=== PATIENT | male | born 1995 | race Caucasian/White ===

== ENCOUNTER 2024-08-02 22:41 | Observation (INO) | payer OTHER, SELFPAY ==
[2024-08-02 22:44] VITALS: BP 142/99; PULSE 120; RESP 15; TEMP 36.6; O2SAT 98
[2024-08-02] MEDS: GLUCAGON FOR INJ 1 MG VIAL IV PUSH (23:14)
[2024-08-02] MEDS: NITROGLYCERIN SL 0.4 MG TABLET SUBLINGUAL (23:14)
[2024-08-02] MEDS: SODIUM CHLORIDE 0.9% IV 1,000 ML 999 ML IV CONT (23:15)
--- NOTE | 2024-08-02 23:42 | ED_ITS ---
HPI - General Adult General Chief complaint: Unspecified Stated complaint: food bolus Time Seen by Provider: 08/02/24 23:05 History of Present Illness HPI narrative: Patient is a 29-year-old gentleman who presents emergency department chief complaint of esophageal food impaction the patient reports that he was eating steak this evening and took too big of a bite and it has been in his esophagus for approximately 5 hours the patient reports that he has been spitting up his saliva and feels as though a steak is stuck in his esophagus the patient reports he has done this before but has been able to pass the impaction on his own patient reports that he has not seen a GI specialist Related Data Allergies Allergy/AdvReac Type Severity Reaction Status Date / Time No Known Allergies Allergy Unverified 03/06/14 18:02 Review of Systems 2 Review of Systems: A 10 system review of systems was completed on the patient and is negative except for what is stated in the HPI. Nursing and ancillary documentation was reviewed. PMFSH Social History Social History Smoking status: Never smoker Exam 2 Narrative: GENERAL: Well-appearing, well-nourished, and in no acute distress. HEAD: Normocephalic, atraumatic. EYES: PERRLA and EOMI. ENT: Nares clear, no rhinorrhea or epistaxis. Mucous membranes moist. NECK: Supple. CHEST: Clear to auscultation. No respiratory distress. HEART: Regular rate and rhythm. No murmur heard. Normal peripheral pulses. ABDOMEN: Soft, nontender, nondistended, normal active bowel sounds. EXTREMITIES: Normal range of motion. No edema. SKIN: Warm, dry, no rash. NEURO: No focal deficits. Alert and oriented x3. PSYCH: Normal mood and affect. Course Vital Signs Vital signs: Vital Signs Temperature 36.6 C 08/02/24 22:44 Pulse Rate 120 H 08/02/24 22:44 Respiratory Rate 15 08/02/24 22:44 Blood Pressure 142/99 H 08/02/24 22:44 Pulse Oximetry 98 08/02/24 22:44 Oxygen Delivery Room Air 08/02/24 22:44 Temperature 36.6 C 08/02/24 22:44 Pulse Rate 120 H 08/02/24 22:44 Respiratory Rate 15 08/02/24 22:44 Blood Pressure 142/99 H 08/02/24 22:44 Pulse Oximetry 98 08/02/24 22:44 Oxygen Delivery Room Air 08/02/24 22:44 Medical Decision Making MDM Narrative Medical decision making narrative: Differential diagnosis includes food impaction Patient was given a dose of glucagon and a dose of nitroglycerin without success Case was discussed with Dr. Vail who will consult on the patient and would like to do the procedure 1st thing in the morning and recommended the patient be admitted to the hospitalist service Vital Signs Vital Signs: Vital Signs Temperature 36.6 C 08/02/24 22:44 Pulse Rate 120 H 08/02/24 22:44 Respiratory Rate 15 08/02/24 22:44 Blood Pressure 142/99 H 08/02/24 22:44 Pulse Oximetry 98 08/02/24 22:44 Oxygen Delivery Room Air 08/02/24 22:44 Temperature 36.6 C 08/02/24 22:44 Pulse Rate 120 H 08/02/24 22:44 Respiratory Rate 15 08/02/24 22:44 Blood Pressure 142/99 H 08/02/24 22:44 Pulse Oximetry 98 08/02/24 22:44 Oxygen Delivery Room Air 08/02/24 22:44 Lab Data 08/02/24 23:48 08/02/24 23:48 Labs: Lab Results 08/02/24 Range/Units 23:48 WBC 6.3 (4.5-10.0) K/mm3 RBC 5.07 (4.6-6.20) M/mm3 Hgb 14.5 (14.0-18.0) g/dL Hct 43.6 (42.0-52.0) % MCV 86.0 (80-100) fl MCH 28.6 (26-34) pg MCHC 33.3 (32-36) g/dl RDW 12.6 (11.5-14.5) % Plt Count 200 (150-375) k/mm3 MPV 10.6 H (7.4-10.4) fl Immature Gran % (Auto) 0.3 (0-0.5) % Neut % (Auto) 75.8 H (45.5-73.1) % Lymph % (Auto) 14.0 L (18.3-44.2) % [place] % (Auto) 8.9 H (2.6-8.5) % Eos % (Auto) 0.2 (0-4.4) % Baso % (Auto) 0.8 (0.2-1.2) % Lymph # (Auto) 0.88 L (0.9-3.2) K/mm3 [place] # (Auto) 0.6 (0.1-0.6) K/mm3 Eos # (Auto) 0.0 (0-0.3) K/mm3 Baso # (Auto) 0.1 (0.0-0.1) K/mm3 Abs Immat Gran (auto) 0.02 (0.00-0.031) K/mm3 Absolute Neuts (auto) 4.8 (1.3-6.7) K/mm3 Absolute Nucleated RBC 0.000 (0.0-0.012) K/mm3 Nucleated RBC % 0.0 (0.0-0.2) % Sodium 136 L (137-145) mmol/L Potassium 4.0 (3.4-5.0) mmol/L Chloride 101 (98-107) mmol/L Carbon Dioxide 28 (22-30) mmol/L Anion Gap 7 (4-12) mmol/L BUN 13 (9-20) mg/dL Creatinine 1.10 (0.7-1.3) mg/dL Estim Creat Clear Calc 96 ml/min Estimated GFR > 60 (59 - ) Glucose 199 H (65-110) mg/dL Calcium 9.9 (8.4-10.2) mg/dL Total Bilirubin 1.1 (0.2-1.3) mg/dL AST 39 (17-59) U/L ALT 82 H (6-50) U/L Alkaline Phosphatase 71 (38-126) U/L Total Protein 7.0 (6.3-8.2) g/dL Albumin 4.6 (3.5-5.1) g/dL Discharge Plan Discharge Clinical Impression: Esophageal obstruction due to food impaction Patient Disposition: Still a Patient Condition: Stable Patient Language: Montenegrin Follow-up/Referrals: Miguel,MD Anthony [Primary Care Provider] - Time of Disposition: 00:09
[2024-08-02 23:54] LABS: Basophils Absolute Auto 0.1 K/mm3 (0.0-0.1); Basophils Percent Auto 0.8 % (0.2-1.2); Eosinophils Percent Auto 0.2 % (0-4.4); Hematocrit 43.6 % (42.0-52.0); Hemoglobin 14.5 g/dL (14.0-18.0); Immature Granulocyte Absolute 0.02 K/mm3 (0.00-0.031); Immature Granulocyte Percent A 0.3 % (0-0.5); Lymphocytes Absolute Auto 0.88 K/mm3 (0.9-3.2); Mean Corpuscular HGB Conc 33.3 g/dl (32-36); Mean Corpuscular Hemoglobin 28.6 pg (26-34); Mean Platelet Volume 10.6 fl (7.4-10.4); Monocytes Absolute Auto 0.6 K/mm3 (0.1-0.6); Monocytes Percent Auto 8.9 % (2.6-8.5); Neutrophils Absolute Auto 4.8 K/mm3 (1.3-6.7); Neutrophils Percent Auto 75.8 % (45.5-73.1); Platelet Count Result 200 k/mm3 (150-375); Red Blood Count 5.07 M/mm3 (4.6-6.20); Red Cell Distribution Width 12.6 % (11.5-14.5); White Blood Count 6.3 K/mm3 (4.5-10.0)
[2024-08-03] VITALS (11 sets, daily range): BP systolic 109–150; BP diastolic 47–93; PULSE 64–110; RESP 13–20; TEMP 36.2–36.6; O2SAT 96–100; BMI 29.4
[2024-08-03 00:04] LABS: Alanine Aminotransferase 82 U/L (6-50); Albumin Level 4.6 g/dL (3.5-5.1); Alkaline Phosphatase 71 U/L (38-126); Anion Gap 7 mmol/L (4-12); Aspartate Amino Transferase 39 U/L (17-59); Bilirubin,Total 1.1 mg/dL (0.2-1.3); Blood Urea Nitrogen 13 mg/dL (9-20); Calcium 9.9 mg/dL (8.4-10.2); Carbon Dioxide 28 mmol/L (22-30); Chloride 101 mmol/L (98-107); Estimated CRCL calculation 96 ml/min; Estimated Glomerular Filt Rate > 60; Glucose 199 mg/dL (65-110); Sodium 136 mmol/L (137-145)
--- NOTE | 2024-08-03 01:01 | PC.NURSE ---
Dona at [facility] states that pt came to them after being removed from hospice with a stoma, but 3 weeks ago had a procedure at [facility] where he had his button replaced but not sutured in. Reports that her shift 5 days ago, patient had an apparatus in stoma from the procedure 3 weeks ago, but was not there upon her seeing patient today. States that pt likes to put stuff into his stoma and was complaining of pain to stoma. Reports that he uses hand gestures or covers stoma to speak to communicate.
[2024-08-03] MEDS: SODIUM CHLORIDE 0.9% IV 1,000 ML 125 ML IV CONT (02:05)
[2024-08-03] MEDS: KETOROLAC 30 MG/ML VIAL (*BKC) (02:06)
--- NOTE | 2024-08-03 02:14 | ADMGEN ---
This patient, Pablito Jenkins, was admitted to 3 [facility] Surg Room 311-01 at 0145. Patient/family oriented to hospital policies and general routines including ID bracelet, bed and alarms, visiting hours, pain management, procedures, bathroom and other care routines, personal items, smoking policy, room service/diet, and visiting hours. Information on how to activate the Rapid Response Team has been discussed. Patient/Family are encouraged to report perceived risks to care and to ask questions if they do not understand what they are told or what they should do.
--- NOTE | 2024-08-03 07:00 | WPDGICN ---
Assessment and Plan Assessment and plan (1) Esophageal obstruction due to food impaction: Code(s): T18.128A - Food in esophagus causing other injury, initial encounter; W44.F3XA - Food entering into or through a natural orifice, initial encounter Status: Acute Assessment and Plan: will proceed with urgent EGD now, may need biopsies based on findings and probably ppi more recommendations after egd (2) Dysphagia: Code(s): R13.10 - Dysphagia, unspecified Status: Acute Assessment and Plan: wonder if stricture or EoE egd now (3) Non-cardiac chest pain: Code(s): R07.89 - Other chest pain Status: Acute Assessment and Plan: resolved now (4) HTN (hypertension), benign: Code(s): I10 - Essential (primary) hypertension Status: Acute GI Consult Note Consult date/time: 08/03/24 07:00 Reason for consult: food bolus HPI: Pablito Jenkins is a 29 year old male wiht h/o HTN here with unable to swallow anymore after had steak for dinner last night, finally came to ER, glucagon did not work. He is still can not swallow and was complaining of chest pain. He is comfortable now. He never had EGD but few occasions sensation of food getting stuck in chest but will stay only for few minutes and will either pass or he will throw up. Sister with similar condition ? EoE Review of Systems Review of Systems: All systems reviewed & are unremarkable except as noted in HPI and below PMFSH Past Medical History Medical History (Updated 08/03/24 @ 07:03 by Antonio Woodall MD) HTN (hypertension), benign Non-cardiac chest pain Dysphagia Family History Family History (Updated 08/03/24 @ 01:11 by Daily Castelan RN) Other Unknown family medical history Social History Social History Smoking status: Never smoker Do You Feel Safe in your Home?: Yes Lack of Transportation: No Lack of Food: Never True Current Housing: I Have Housing Concerned About Future Housing: No Difficulty Paying Gas/Electric Bills: No Difficulty Paying for Meds: No Currently Unemployed: No Education: Bachelor's Degree Difficulty w/ Childcare or Family Care: No Spiritual care concerns: No Meds Home Medications and Allergies Home Medications ?Medication ?Instructions ?Recorded ?Confirmed ?Type lisinopril 20 mg tablet 20 mg PO DAILY 08/03/24 08/03/24 History Allergies Allergy/AdvReac Type Severity Reaction Status Date / Time No Known Allergies Allergy Verified 08/03/24 07:01 Vital Signs Vital Signs - 24 hr 08/02/24 22:44 08/03/24 00:37 08/03/24 01:45 Temperature 98 F 97.3 F L Pulse Rate 120 H 109 H 97 Respiratory Rate 15 15 16 Blood Pressure 142/99 H 150/93 H 139/84 Pulse Oximetry 98 96 100 Oxygen Delivery Room Air 08/03/24 02:11 08/03/24 05:33 Temperature 97.4 F L Pulse Rate 92 Respiratory Rate 13 Blood Pressure 136/83 Pulse Oximetry 99 Oxygen Delivery Room Air Exam Const: General: comfortable and no acute distress HENMT: Face/Nose/Sinus: Normal nares present Eyes: General: appearance normal, both eyes and all related structures Neck: Neck: no JVD Resp: Auscultation: clear to auscultation bilaterally Cardio: Rate: regular rate Rhythm: regular rhythm GI: Inspection: non-distended GI Palp: Yes Soft to palpation Skin: General skin exam: normal color Neuro: General: gait normal Speech: normal speech Extrem: General: normal to inspection Psych: Mental Status: mental status grossly normal Results Labs 08/02/24 23:48 08/02/24 23:48 Labs: Short CBC 08/02/24 Range/Units 23:48 WBC 6.3 (4.5-10.0) K/mm3 Hgb 14.5 (14.0-18.0) g/dL Hct 43.6 (42.0-52.0) % Plt Count 200 (150-375) k/mm3 [facility] 08/02/24 23:48 Sodium 136 L Potassium 4.0 Chloride 101 Carbon Dioxide 28 BUN 13 Creatinine 1.10 Glucose 199 H Calcium 9.9 Liver Function 08/02/24 Range/Units 23:48 Total Bilirubin 1.1 (0.2-1.3) mg/dL AST 39 (17-59) U/L ALT 82 H (6-50) U/L Alkaline Phosphatase 71 (38-126) U/L Albumin 4.6 (3.5-5.1) g/dL
[2024-08-03] MEDS: LACTATED RINGERS 1,000 ML 150 ML IV CONT (07:05)
--- NOTE | 2024-08-03 07:24 | P.PNAN_ITS ---
Anes - Initial Pre Proc Eval Procedure: Operation Date: 08/03/24 07:15 Proposed Procedures p Esophagogastroduodenoscopy - Antonio Woodall MD Date/Time: 08/03/24 07:24 Surgeon: Mesha Iverson DO Pre Op Diagnosis: esophageal food poison Patient Data Age: 29 Gender: M Height: 1.83 m Weight: 98.4 kg Last Vital Signs Temp 36.6 C 08/03/24 07:03 Pulse 110 H 08/03/24 07:03 Resp 20 08/03/24 07:03 BP 146/89 H 08/03/24 07:03 Pulse Ox 100 08/03/24 07:03 O2 Del Method Room Air 08/03/24 07:03 Allergies Allergy/AdvReac Type Severity Reaction Status Date / Time No Known Allergies Allergy Verified 08/03/24 07:01 Home Medications ?Medication ?Instructions ?Recorded ?Confirmed ?Type lisinopril 20 mg tablet 20 mg PO DAILY 08/03/24 08/03/24 History Laboratory Tests 08/02/24 23:48 WBC 6.3 K/mm3 (4.5-10.0) RBC 5.07 M/mm3 (4.6-6.20) Hgb 14.5 g/dL (14.0-18.0) Hct 43.6 % (42.0-52.0) MCV 86.0 fl (80-100) MCH 28.6 pg (26-34) MCHC 33.3 g/dl (32-36) RDW 12.6 % (11.5-14.5) Plt Count 200 k/mm3 (150-375) MPV 10.6 H fl (7.4-10.4) Immature Gran % (Auto) 0.3 % (0-0.5) Neut % (Auto) 75.8 H % (45.5-73.1) Lymph % (Auto) 14.0 L % (18.3-44.2) [place] % (Auto) 8.9 H % (2.6-8.5) Eos % (Auto) 0.2 % (0-4.4) Baso % (Auto) 0.8 % (0.2-1.2) Lymph # (Auto) 0.88 L K/mm3 (0.9-3.2) [place] # (Auto) 0.6 K/mm3 (0.1-0.6) Eos # (Auto) 0.0 K/mm3 (0-0.3) Baso # (Auto) 0.1 K/mm3 (0.0-0.1) Abs Immat Gran (auto) 0.02 K/mm3 (0.00-0.031) Absolute Neuts (auto) 4.8 K/mm3 (1.3-6.7) Absolute Nucleated RBC 0.000 K/mm3 (0.0-0.012) Nucleated RBC % 0.0 % (0.0-0.2) Sodium 136 L mmol/L (137-145) Potassium 4.0 mmol/L (3.4-5.0) Chloride 101 mmol/L (98-107) Carbon Dioxide 28 mmol/L (22-30) Anion Gap 7 mmol/L (4-12) BUN 13 mg/dL (9-20) Creatinine 1.10 mg/dL (0.7-1.3) Estim Creat Clear Calc 96 ml/min Estimated GFR > 60 (59 - ) Glucose 199 H mg/dL (65-110) Calcium 9.9 mg/dL (8.4-10.2) Total Bilirubin 1.1 mg/dL (0.2-1.3) AST 39 U/L (17-59) ALT 82 H U/L (6-50) Alkaline Phosphatase 71 U/L (38-126) Total Protein 7.0 g/dL (6.3-8.2) Albumin 4.6 g/dL (3.5-5.1) Patient hx anesthesia problems: none Family hx anesthesia problems: none Results Review: All pre-operative results and documents have been reviewed as part of the pre- operative evaluation. [facility] Past Medical History Medical History HTN (hypertension), benign Non-cardiac chest pain Dysphagia Family History Family History Other Unknown family medical history Social History Social History Smoking status: Never smoker Do You Feel Safe in your Home?: Yes Lack of Transportation: No Lack of Food: Never True Current Housing: I Have Housing Concerned About Future Housing: No Difficulty Paying Gas/Electric Bills: No Difficulty Paying for Meds: No Currently Unemployed: No Education: Bachelor's Degree Difficulty w/ Childcare or Family Care: No Spiritual care concerns: No Anes - Eval Final PreProcedure Day of Procedure 08/03/24 07:24 Patient weight: overweight Heart: regular rate and rhythm Lungs: clear to auscultation Airway: Mallampati scale class II Neurological: alert and oriented Last oral intake: >/= 8 hours ASA classification: II Emergent: yes Anesthetic plan: proceed Anesthesia type and monitoring: general GIVS and standard monitoring Results Review: All pre-operative results and documents have been reviewed as part of the pre- operative evaluation. Informed Consent: The patient's anesthetic plan and its attendant risks and benefits were discussed with the patient/family/POA. Questions were solicited and answers provided to the satisfaction of the patient/family/POA.
--- NOTE | 2024-08-03 08:53 | P.SS_ITS ---
Same Day Admit/Disch: HPI History of Present Illness Chief complaint: esophageal food poison Narrative: Pablito Jenkins is a 29 year old male that came to the ER with esophageal food impaction. Patient reports that he was eating steak yesterday evening and took too big of a bite and it has been in the esophagus for approximately 5 hours. The patient reports that he was spitting up saliva and feels as though a steak is stuck in his esophagus the patient reports he has done this before but has been able to pass the impaction on his own patient reports that he has not seen a GI specialist. [facility] Past Medical History Medical History HTN (hypertension), benign Non-cardiac chest pain Dysphagia Family History Family History Other Unknown family medical history Social History Social History Smoking status: Never smoker Do You Feel Safe in your Home?: Yes Lack of Transportation: No Lack of Food: Never True Current Housing: I Have Housing Concerned About Future Housing: No Difficulty Paying Gas/Electric Bills: No Difficulty Paying for Meds: No Currently Unemployed: No Education: Bachelor's Degree Difficulty w/ Childcare or Family Care: No Spiritual care concerns: No Same Day Admit/Disch: Med Pre-admit Medications Home Medications ?Medication ?Instructions ?Recorded ?Confirmed ?Type lisinopril 20 mg tablet 20 mg PO DAILY 08/03/24 08/03/24 History pantoprazole 40 mg tablet,delayed 40 mg PO QAM #30 tabs 08/03/24 Rx release Review of Systems Review of Systems All systems reviewed & are unremarkable except as noted in HPI and below Exam Const: General: comfortable and no acute distress Eyes: Sclera: sclerae normal Resp: Effort & Inspection: normal respiratory effort Auscultation: clear to auscultation bilaterally Cardio: Rate: regular rate Rhythm: regular rhythm GI: GI Palp: Yes Soft to palpation Auscultation: normal bowel sounds Skin: General skin exam: no rashes or lesions noted Neuro: Speech: normal speech Extrem: General: no pedal edema Psych: Mental Status: mental status grossly normal Affect: normal affect DS: Data Data Completed and Pending Pending studies at discharge: Pending at discharge 08/03/24 07:37 Surgical [PTH] Routine Labs on day of discharge: Labs from last 24 hours 08/02/24 23:48 WBC 6.3 RBC 5.07 Hgb 14.5 Hct 43.6 MCV 86.0 MCH 28.6 MCHC 33.3 RDW 12.6 Plt Count 200 MPV 10.6 H Immature Gran % (Auto) 0.3 Neut % (Auto) 75.8 H Lymph % (Auto) 14.0 L [place] % (Auto) 8.9 H Eos % (Auto) 0.2 Baso % (Auto) 0.8 Lymph # (Auto) 0.88 L [place] # (Auto) 0.6 Eos # (Auto) 0.0 Baso # (Auto) 0.1 Abs Immat Gran (auto) 0.02 Absolute Neuts (auto) 4.8 Absolute Nucleated RBC 0.000 Nucleated RBC % 0.0 Sodium 136 L Potassium 4.0 Chloride 101 Carbon Dioxide 28 Anion Gap 7 BUN 13 Creatinine 1.10 Estim Creat Clear Calc 96 Estimated GFR > 60 Glucose 199 H Calcium 9.9 Total Bilirubin 1.1 AST 39 ALT 82 H Alkaline Phosphatase 71 Total Protein 7.0 Albumin 4.6 DS: Summary Hospital Course Hospital Course: Patient came to the ER with food impaction in esophagus. Patient had an EGD: A moderate amount of retained food was seen in the distal esophagus and in the esophageal cardia. Meat was removed with a helms net successfully (actually was gently pushed down into the stomach), no complications. A ring was present in the esophageal cardia. This was the cause of food bolus, noted small expected tear but no complications. Discharge to home with follow up EGD in 6 weeks and PPI added (Pantoprazole 40 mg PO daily). Status at Discharge Functional status at discharge: independent ambulation Overall status at discharge: patient is progressing back to baseline Time Spent with Patient Time attestation: Total time spent providing and/or coordinating discharge services: Time spent: Greater than 30 minutes DS: Admitting Diagnosis Discharge Date 08/03/2024 Admitting Diagnosis Food stuck in esophagus DS: Discharge Diagnosis Discharge Diagnosis (1) Esophageal obstruction due to food impaction: Code(s): T18.128A - Food in esophagus causing other injury, initial encounter; W44.F3XA - Food entering into or through a natural orifice, initial encounter Status: Acute Discharge Plan Discharge Attending physician on discharge: Windy Cervantes Consulting providers: Antonio Woodall Discharging Clinician: Debra Graves Anticipated Discharge Date/Time: 08/03/24 10:00 Patient Disposition: Home, Self-Care Activity: may shower and as tolerated Diet: regular Discharge Instructions: * Okay to resume diet. Eat small portions at a time. Take polly bites and chew food well before swallowing. * Dr. Woodall office will call with test results. If you haven't heard from them within 7 days, please call the office. * Call Dr. Woodall office to set up EGD for 6 weeks. Patient Instructions: Pain Management (DC), GERD (Gastroesophageal Reflux Disease) (DC), Esophageal Stricture (GEN) Patient Language: Bulgarian Stand Alone Forms: General Discharge Information Follow-up/Referrals: Antonio Woodall MD [Physician] - 6 Weeks (Schedule EGD) Discharge Medications: New pantoprazole 40 mg Tablet,Delayed Release (Dr/Ec) 40 mg PO QAM Qty: 30 1RF Continued lisinopril 20 mg tablet 20 mg PO DAILY Date of admission: 08/03/24 00:10 Primary Care Provider: MiguelAnthony Admitting Provider: Mesha Iverson Attending physician on admission: Mesha Iverson Condition: Stable Hospitalist MIPS Advance Care Plan I have confirmed that the patient's Advanced Care Plan is present, code status is documented, or surrogate decision maker is listed in patient medical record.: Yes Medication Reconciliation I have utilized all available resources to obtain, update and review the patients current medications (includes all prescriptions, OTC, herbals, cannabis, and nutritional supplements).: Yes Heart Failure (Exclusion) Patient has history of Heart Transplant or Left Ventricular Assistive Device?: No IF YES, STOP HERE Heart Failure (Qualifier) Patient has current or prior documentation of LVEF less than or equal to 40%, or mod/servere depressed LVSF?: No IF NO, STOP HERE
[2024-08-03] MEDS: PANTOPRAZOLE 40 MG TABLET PO (09:42)
== END 2024-08-03 10:16 | disposition home or self-care (01) ==
LOC: ANHED 23:51 → ANH3MEDSUR 08-03 01:15
PROVIDERS: Internal Medicine Gastroenterology; Admitting Provider Internal Medicine; Emergency Provider Emergency Medicine; PCP Internal Medicine Infectious Disease; Visit Provider Hospitalist
PROC: 0DJ08ZZ Inspection of Upper Intestinal Tract, Via Natural or Artificial Opening Endoscopic (ICD-10-PCS; CPT 43235; principal; 2024-08-03 07:15)
DX: T18.128A Food in esophagus causing other injury, initial encounter (principal); W44.F3XA Food entering into or through a natural orifice, initial encounter; K22.2 Esophageal obstruction; K20.90 Esophagitis, unspecified without bleeding; K29.50 Unspecified chronic gastritis without bleeding; R13.19 Other dysphagia; R07.89 Other chest pain; I10 Essential (primary) hypertension; Z79.899 Other long term (current) drug therapy
CPT/HCPCS: 43247; 43239; 36415; 80053; 85025; 88305; 96361; 96374; 99285; A9270; G0378; J1610; J1885; J2003; J2704; J7030; J7120

== ENCOUNTER 2024-09-30 02:14 | Day surgery (SDC) | payer OTHER, SELFPAY ==
[2024-09-16 09:02] VITALS: BMI 26.4
--- OUTSIDE RECORDS SUMMARY | 2024-09-30 02:17 | XMS_ITS | Encounter Summary ---
Author Organization [facility] Address [address] [place] [address] Phone Care Team Providers Care Field Counsel Name Role Phone Anthony Rivera MD Primary Care Provider +1- [phone] Encounter Details Date Type Department Care Team (Late st Contact Info) Description 04/07/2017 Orders Only [facility] [address] [place] [address] Anthony Rivera MD [address] [address] Essential hypertension, malignant (Primary Dx); Routine lab draw Social History Tobacco Use Types Packs/Day Years Used Date Smoking Tobacco: Never Smokeless Tobacco: Never Sex and Gender Information Value Date Recorded Sex Assigned at Not on file Legal Sex Male 8:50 PM HIDE PULLER Gender Identity Not on file Sexual Orientation Not on file documented as of this encounter Plan of Treatment Not on file documented as of this encounter Procedures Procedure Name Priority Date/Time Associated Diagnosis Comments CBC WITH AUTO DIFFERENTIAL Routine 08/14/2017 10:00 AM HIDE PULLER Essential hypertension, malignant VITAMIN D 25 HYDROXY Routine 08/14/2017 10:00 AM HIDE PULLER Routine lab draw VITAMIN B12 Routine 08/14/2017 10:00 AM HIDE PULLER Routine lab draw LIPID PANEL Routine 08/14/2017 10:00 AM HIDE PULLER Essential hypertension, malignant COMPREHENSIVE METABOLIC PANEL Routine 08/14/2017 10:00 AM HIDE PULLER Essential hypertension, malignant documented in this encounter Results * Vitamin B12 (08/14/2017 10:00 AM HIDE PULLER) Vitamin B12 442 200 - 1,100 pg/mL [facility] Blood specimen (specimen) 08/14/2017 10:00 AM HIDE PULLER 08/14/2017 10:00 AM HIDE PULLER Narrative [facility] - 08/15/2017 3:37 AM HIDE PULLER FASTING:YES FASTING: YES Resulting Agency Comment Performing Organization Information: Site ID: [id number] Name: [facility] Address: [address] [place] [address] Director: Jean Mcnally D.O., MPH Anthony Rivera MD LAB BLOOD ORDERABLES Final Result [place], [place] * (ABNORMAL) Lipid panel (08/14/2017 10:00 AM HIDE PULLER) Pathologist [facility] Cholesterol 214(H) <200 mg/dL [facility] [place] HDL 50 >40 mg/dL [facility] Triglycerides 124 <150 mg/dL [facility] [place] LDL 139(H) mg/dL (calc) [facility] Comment: Reference range: <100 Desirable range <100 mg/dL for patients with CHD or diabetes and <70 mg/dL for diabetic patients with known heart disease. LDL-C is now calculated using the Judah-Gia calculation, which is a validated novel method providing better accuracy than the Friedewald equation in the estimation of LDL-C. Judah SS et al. DAMIR. 2013;310(19): 3404-4243 (http://education.Exara/faq/XRH206) Chol/HDL ratio 4.3 <5.0 (calc) [facility] [place] Non-HDL, (LDL+VLDL) 164(H) <130 mg/dL (calc) [facility] Comment: For patients with diabetes plus 1 major ASCVD risk factor, treating to a non-HDL-C goal of <100 mg/dL (LDL-C of <70 mg/dL) is considered a therapeutic option. Blood specimen (specimen) 08/14/2017 10:00 AM HIDE PULLER 08/14/2017 10:00 AM HIDE PULLER Narrative [facility] - 08/15/2017 3:37 AM HIDE PULLER FASTING:YES FASTING: YES Resulting Agency Comment Performing Organization Information: Site ID: [id number] Name: [facility] Address: [address] [place] [address] Director: Jean Mcnally D.O., MPH Anthony Rivera MD LAB BLOOD ORDERABLES Final Result [employer] [place], [place] * Vitamin D 25 hydroxy (08/14/2017 10:00 AM HIDE PULLER) Vitamin D 25-OH 30 30 - 100 ng/mL [facility] Comment: Vitamin D Status 25-OH Vitamin D: Deficiency: <20 ng/mL Insufficiency: 20 - 29 ng/mL Optimal: > or = 30 ng/mL For 25-OH Vitamin D testing on patients on D2-supplementation and patients for whom quantitation of D2 and D3 fractions is required, the QuestAssureD(TM) 25-OH VIT D, (D2,D3), LC/MS/MS is recommended: order code [id number] (patients >2yrs). For more information on this test, go to: http://education.Only [place].ANT Farm/faq/BLS976 (This link is being provided for informational/educational purposes only.) Blood specimen (specimen) 08/14/2017 10:00 AM HIDE PULLER 08/14/2017 10:00 AM HIDE PULLER Narrative [facility] - 08/15/2017 3:37 AM HIDE PULLER FASTING:YES FASTING: YES Resulting Agency Comment Performing Organization Information: Site ID: [id number] Name: [facility] Address: [address] [place] [address] Director: Jean Mcnally D.O., MPH us Anthony Rivera MD LAB BLOOD ORDERABLES Final Result [facility] [place] * (ABNORMAL) Comprehensive metabolic panel (08/14/2017 10:00 AM HIDE PULLER) Glucose 102(H) 65 - 99 mg/dL [facility] [place] Comment: Fasting reference interval For someone without known diabetes, a glucose value between 100 and 125 mg/dL is consistent with prediabetes and should be confirmed with a follow-up test. BUN 21 7 - 25 mg/dL [facility] [place] Creatinine 0.90 0.60 - 1.35 mg/dL [facility] [place] eGFR NON-AFR. RWANDAN 120 > OR = 60 mL/min/1. 73m2 [facility] [place] EGFR 139 > OR = 60 mL/min/1. 73m2 [facility] [place] BUN/creat ratio NOT APPLICABLE 6 - 22 (calc) [facility] [place] Sodium 139 135 - 146 mmol/L [facility] [place] Potassium, pl 5.0 3.5 - 5.3 mmol/L [facility] [place] Chloride 102 98 - 110 mmol/L [facility] [place] CO2 29 20 - 31 mmol/L [facility] [place] Calcium 10.3 8.6 - 10.3 mg/dL [facility] [place] Protein, sr 7.6 6.1 - 8.1 g/dL [facility] [place] Albumin 5.4(H) 3.6 - 5.1 g/dL [facility] [place] GLOBULIN 2.2 1.9 - 3.7 g/dL (calc) [facility] [place] Alb/glob ratio 2.5 1.0 - 2.5 (calc) [facility] [place] Bilirubin, total 0.7 0.2 - 1.2 mg/dL [facility] [place] Alk phos 77 40 - 115 U/L [facility] [place] AST 30 10 - 40 U/L [facility] [place] ALT (SGPT) 74(H) 9 - 46 U/L [facility] [place] Blood specimen (specimen) 08/14/2017 10:00 AM HIDE PULLER 08/14/2017 10:00 AM HIDE PULLER Narrative [facility] - 08/15/2017 3:37 AM HIDE PULLER FASTING:YES FASTING: YES Resulting Agency Comment Performing Organization Information: Site ID: [id number] Name: [facility] Address: [address] [address] Director: Jean Mcnally D.O., MPH us Anthony Rivera MD LAB BLOOD ORDERABLES Final Result [facility] [place] * CBC with auto differential (08/14/2017 10:00 AM HIDE PULLER) WBC 5.4 3.8 - 10.8 Thousand/ uL [facility] [place] RBC, POC 5.54 4.20 - 5.80 Million/u L [facility] [place] Hgb 15.9 13.2 - 17.1 g/dL [facility] [place] Hct 48.1 38.5 - 50.0 % [facility] [place] MCV 86.8 80.0 - 100.0 fL [facility] [place] MCH 28.7 27.0 - 33.0 pg [facility] [place] MCHC 33.1 32.0 - 36.0 g/dL [facility] [place] Rdw 12.0 11.0 - 15.0 % [facility] [place] Platelets 227 140 - 400 Thousand/ uL [facility] [place] MPV 11.1 7.5 - 12.5 fL [facility] [place] Neutrophils, abs 3,499 1,500 - 7,800 cells/uL [facility] [place] Neutrophil bands, abs CANCELED 0 - 750 cells/uL [facility] [place] Comment:Result canceled by t he ancillary Metamyelocytes, abs CANCELED 0 cells/uL [facility] [place] Comment:Result canceled by t he ancillary Absolute Myelocytes CANCELED 0 cells/uL [facility] [place] Comment:Result canceled by t he ancillary Promyelocytes, abs CANCELED 0 cells/uL [facility] [place] Comment:Result canceled by t he ancillary Lymphocytes, abs 1,350 850 - 3,900 cells/uL [facility] [place] Monocyte abs 470 200 - 950 cells/uL [facility] [place] Eosinophils, abs 32 15 - 500 cells/uL [facility] [place] Basophils, abs 49 0 - 200 cells/uL [facility] [place] Blast, cell CANCELED 0 cells/uL [facility] [place] Comment:Result canceled by t he ancillary NRBC abs CANCELED 0 cells/uL [facility] [place] Comment:Result canceled by t he ancillary Neutrophils 64.8 % [facility] [place] Neutrophilic bands CANCELED % [facility] [place] Comment:Result canceled by t he ancillary Metamyelocyte pct CANCELED % [facility] [place] Comment:Result canceled by t he ancillary Myelocyte pct CANCELED % [facility] [place] Comment:Result canceled by t he ancillary Promyelocyte pct CANCELED % [facility] [place] Comment:Result canceled by t he ancillary Lymphocyte pct 25.0 % [facility] [place] Reactive lymph CANCELED 0 - 10 % [facility] [place] Comment:Result canceled by t he ancillary Monocytes 8.7 % [facility] [place] Eosinophils 0.6 % [facility] [place] Basophils 0.9 % [facility] [place] Blast pct CANCELED % [facility] [place] Comment:Result canceled by t he ancillary NRBC CANCELED 0 /100 WBC [facility] [place] Comment:Result canceled by t he ancillary Comment CANCELED [facility] [place] Comment:Result canceled by t he ancillary Blood specimen (specimen) 08/14/2017 10:00 AM HIDE PULLER 08/14/2017 10:00 AM HIDE PULLER Narrative [facility] - 08/15/2017 3:37 AM HIDE PULLER FASTING:YES FASTING: YES Resulting Agency Comment Performing Organization Information: Site ID: [id number] Name: [facility] Address: [address] [place] [address] Director: Jean Mcnally D.O., MPH us Anthony Rivera MD LAB BLOOD ORDERABLES Final Result [facility] [place] documented in this encounter Visit Diagnoses Diagnosis Essential hypertension, malignant- Primary Routine lab draw documented in this encounter Care Teams Field Counsel Relationship Specialty Start Date End Date Anthony Rivera MD [address] [place] [address] PCP - General 08/06/15 documented as of this encounter
--- OUTSIDE RECORDS SUMMARY | 2024-09-30 02:17 | XMS_ITS | Referral Summary ---
Author Organization [facility] Address [address] [place] [address] Phone Care Team Providers Care Developer Programmer Name Role Phone Anthony Rivera MD Primary Care Provider [phone]- [phone] Encounters Date Type Department Care Team Description 08/04/2024 Orders Only [facility] Health Information Management [address] [place] [address] Scanning, Provider from Last 3 Months Allergies Active Allergy Reactions Criticality Noted Date Comments Venom-Wasp Medications EPINEPHrine (EpiPen) 0.3 mg/0.3 mL auto-injection syringe Inject 0.3 mL (0.3 mg total) into the muscle as instructed once for 1 dose 1 each 3 3 Active lisinopriL (PRINIVIL,ZESTR IL) 20 mg tablet Take 1 tablet (20 mg total) by mouth daily 90 tablet 3 4 Active Active Problems Problem Noted Date Diagnosed Date Routine physical examination 08/19/2017 Left ear pain 08/07/2017 Benign essential hypertension 07/08/2010 Immunizations Name Administration Dates Next Due DTaP, Unspecified 10/25/1999, 6,01/31/1995,11/26,1994 Hep A, Unspecified 01/15/2009 Hep B, Unspecified 02/02/1995,1994, 994 HiB 11/16/1995, 5,1994,10/03 Influenza, Quadrivalent, Spl it, Preservative Free, Intramuscular 04/29/2020 MMR 10/25/1999,08/25/1995 Meningococcal MCV4P (Menactra) 02/01/2007,2004 Polio, Unspecified 10/25/1999, 5,1994,10/03 Tdap 08/18/2023,06/12/2015,06/11/2005 Social History Tobacco Use Types Packs/Day Years Used Date Smoking Tobacco: Never Smokeless Tobacco: Never Tobacco Cessation:Counseling Given: Not Answered PHQ-2 Answer Date Recorded PHQ-2 Total Score (If total score is 3 or more points, staff should administer the PHQ-9) 0 10/30/2023 Personal Safety Answer Date Recorded Getting School Help Needed Not on file 08/18 Sex and Gender Information Value Date Recorded Sex Assigned at Not on file Legal Sex Male 8:50 PM OFFICER CAPTAIN Gender Identity Not on file Sexual Orientation Not on file Last Filed Vital Signs Vital Sign Reading Time Taken Comments Blood Pressure 130/78 10/30/2023 3:57 PM CDT Pulse 70 10/30/2023 3:57 PM CDT Temperature 36.4 C (97.5 F) 10/30/2023 3:57 PM CDT Respiratory Rate 18 10/30/2023 3:57 PM CDT Oxygen Saturation 99% 10/30/2023 3:57 PM CDT Inhaled Oxygen Concentration - - Weight 96.4 kg (212 lb 9.6 oz) 10/30/2023 3:57 P M CDT Height 183.5 cm (6' 0.25 ) 09/14/2019 3:19 PM CS T Body Mass Index 28.63 09/14/2019 3:19 PM OFFICER CAPTAIN Plan of Treatment Not on file Procedures Procedure Name Priority Date/Time Associated Diagnosis Comments SCAN - RADIOLOGY/IMAGING 08/04/2024 2:51 PM OFFICER CAPTAIN from Last 3 Months Results * SCAN - RADIOLOGY/IMAGING (08/04/2024 2:51 PM OFFICER CAPTAIN) Anatomical Region Laterality Modality Other us Provider Scanning Final Result from Last 3 Months Insurance CIGNA CIGNA Care Teams Developer Programmer Relationship Specialty Start Date End Date Anthony Rivera MD [address] [place] [address] PCP - General 08/06/15
--- OUTSIDE RECORDS SUMMARY | 2024-09-30 02:17 | XMS_ITS | Encounter Summary ---
Author Organization [facility] Healthcare Address [address] [place] [address] Care Team Providers Care Branch Officer Name Role Phone Anthony Rivera MD Primary Care Provider +1- [phone] Encounter Details Date Type Department Care Team (Late st Contact Info) Description 08/04/2024 Orders Only [facility] [place] Management [address] [place] [address] Scanning, Provider Social History Tobacco Use Types Packs/Day Years Used Date Smoking Tobacco: Never Smokeless Tobacco: Never PHQ-2 Answer Date Recorded PHQ-2 Total Score (If total score is 3 or more points, staff should administer the PHQ-9) 0 10/30/2023 Personal Safety Answer Date Recorded Getting School Help Needed Not on file 08/18 Sex and Gender Information Value Date Recorded Sex Assigned at Not on file Legal Sex Male 8:50 PM COMPUTER LANGUAGE CODER Gender Identity Not on file Sexual Orientation Not on file documented as of this encounter Plan of Treatment Not on file documented as of this encounter Procedures Procedure Name Priority Date/Time Associated Diagnosis Comments SCAN - RADIOLOGY/IMAGING 08/04/2024 2:51 PM COMPUTER LANGUAGE CODER documented in this encounter Results * SCAN - RADIOLOGY/IMAGING (08/04/2024 2:51 PM COMPUTER LANGUAGE CODER) Anatomical Region Laterality Modality Other us Provider Scanning Final Result documented in this encounter Visit Diagnoses Not on filedocumented in this encounter Care Teams Branch Officer Relationship Specialty Start Date End Date Anthony Rivera MD [address] [place] [address] PCP - General 08/06/15 documented as of this encounter
--- OUTSIDE RECORDS SUMMARY | 2024-09-30 02:17 | XMS_ITS | Clinical Summary ---
Author Organization [facility] [employer] Address [address] [place] [address] Phone Care Team Providers Care Senior Associate Name Role Phone Miguel Anthony Schneider MD Primary Care Provider +1- [phone] Allergies Active Allergy Reactions Criticality Noted Date [...] ear pain 08/07/2017 Benign essential hypertension 07/08/2010 Encounters Date Type Department Care Team Description 08/04/2024 Orders Only [facility] Health Information Management [address] [place] [address] Scanning, Provider from Last 3 Months Immunizations Name Administration Dates Next Due DTaP, [...] on file Legal Sex Male 8:50 PM PRODUCT PROMOTER SALES PERSON Gender Identity Not on file Sexual Orientation Not on file Obstetrics History Last Filed Vital Signs Vital Sign Reading [...] Body Mass Index 28.63 09/14/2019 3:19 PM PRODUCT PROMOTER SALES PERSON Plan of Treatment Health Maintenance Due Date Last Done Comments Hepatitis C Screening 1994 Varicella Vaccines (1 of 2 - 13+ 2-dose series) 2007 Covid-19 Vaccine (3 - season) 2024 12/12/2020, 11/14/2020 Influenza Vaccine (#1) 2024 04/29/2020 Depression Screening 10/29/2024 10/30/2023 Regular Well Visit/Exam 18-64 10/29/2024 10/30/2023, 10/23/2022, 10/21/2021, Additional history exists DTaP/Tdap/Td Vaccine (9 - Td or Tdap) 08/18/2033 08/18/2023, 06/12/2015, 06/11/2005, Additional history exists Hepatitis B Screening Completed 02/02/1995 , 1994, 1994 HPV Vaccines Aged Out No longer eligi ble based on patient's age to complete this topic Pneumococcal vaccine <65 Aged Out No longer eligible based on patient's age to complete this topic Procedures Procedure Name Priority Date/Time Associated Diagnosis Comments SCAN - RADIOLOGY/IMAGING 08/04/2024 2:51 PM PRODUCT PROMOTER SALES PERSON from Last 3 Months Results * SCAN - RADIOLOGY/IMAGING (08/04/2024 2:51 PM PRODUCT PROMOTER SALES PERSON) Anatomical Region Laterality Modality Other Provider Scanning Final Result from Last 3 Months Insurance CIGNA CIGNA Care Teams Senior Associate Relationship Specialty Start Date End Date Anthony Rivera MD [address] [place] [address] PCP - General 08/06/15
[2024-09-30 12:50] VITALS: BP 141/92; PULSE 75; RESP 18; TEMP 36.6; O2SAT 99; BMI 29.0
--- NOTE | 2024-09-30 12:58 | WPDANESEPPF ---
Anes - Initial Pre Proc Eval Procedure: Operation Date: 09/30/24 15:00 Proposed Procedures p Esophagogastroduodenoscopy - Antonio Woodall MD Date/Time: 09/30/24 12:58 Surgeon: Antonio Woodall MD Pre Op Diagnosis: Esophageal obstruction Patient Data Age: 29 Gender: M Height: 1.85 m Weight: 91 kg Allergies Allergy/AdvReac Type Severity Reaction Status Date / Time No Known Allergies Allergy Verified 09/30/24 12:56 Home Medications ?Medication ?Instructions ?Recorded ?Confirmed ?Type lisinopril 20 mg tablet 20 mg PO DAILY 08/03/24 09/16/24 History pantoprazole 40 mg tablet,delayed 40 mg PO QAM #30 tabs 08/03/24 09/16/24 Rx release Patient hx anesthesia problems: none Family hx anesthesia problems: none Results Review: All pre-operative results and documents have been reviewed as part of the pre-operative evaluation. [facility] Past Medical History Medical History HTN (hypertension), benign Non-cardiac chest pain Dysphagia Surgical History Surgical History (Updated 09/30/24 @ 12:58 by Delano Mcclelland MD) History of esophagogastroduodenoscopy (EGD) Family History Family History Other Unknown family medical history Social History Social History Smoking status: Never smoker Alcohol intake: never Substance use: never Substance use type: does not use Do You Feel Safe in your Home?: Yes Lack of Transportation: No Lack of Food: Never True Current Housing: I Have Housing Concerned About Future Housing: No Difficulty Paying Gas/Electric Bills: No Difficulty Paying for Meds: No Currently Unemployed: No Education: Bachelor's Degree Difficulty w/ Childcare or Family Care: No Living arrangements: with family Spiritual care concerns: No Anes - Eval Final PreProcedure Day of Procedure 09/30/24 12:58 Patient weight: obese Heart: regular rate and rhythm Lungs: clear to auscultation Airway: Mallampati scale class II Neurological: alert and oriented ASA classification: II Emergent: no Anesthetic plan: proceed Anesthesia type and monitoring: general GIVS and standard monitoring Results Review: All pre-operative results and documents have been reviewed as part of the pre-operative evaluation. Informed Consent: The patient's anesthetic plan and its attendant risks and benefits were discussed with the patient/family/POA. Questions were solicited and answers provided to the satisfaction of the patient/family/POA.
[2024-09-30] MEDS: LACTATED RINGERS 1,000 ML 150 ML IV CONT (13:07)
--- NOTE | 2024-09-30 13:08 | PM.HPGS ---
History of Present Illness History of Present Illness Consent: Risks, benefits, and alternatives have been discussed and questions answered. Patient agrees to proceed with procedure. Chief complaint: Esophageal obstruction Narrative: Pablito Jenkins is a 29 year old male with food bolus 07/2024 that required urgent EGD, here to reassess. No more episodes with ppi, bx did not show EoE Review of Systems Review of Systems: All systems reviewed & are unremarkable except as noted in HPI and below PMFSH Past Medical History Medical History HTN (hypertension), benign Non-cardiac chest pain Dysphagia Surgical History Surgical History (Updated 09/30/24 @ 12:58 by Delano Mcclelland MD) History of esophagogastroduodenoscopy (EGD) Family History Family History Other Unknown family medical history Social History Social History Smoking status: Never smoker Alcohol intake: never Substance use: never Substance use type: does not use Do You Feel Safe in your Home?: Yes Lack of Transportation: No Lack of Food: Never True Current Housing: I Have Housing Concerned About Future Housing: No Difficulty Paying Gas/Electric Bills: No Difficulty Paying for Meds: No Currently Unemployed: No Education: Bachelor's Degree Difficulty w/ Childcare or Family Care: No Living arrangements: with family Spiritual care concerns: No Meds Home Medications and Allergies Home Medications ?Medication ?Instructions ?Recorded ?Confirmed ?Type lisinopril 20 mg tablet 20 mg PO DAILY 08/03/24 09/30/24 History pantoprazole 40 mg tablet,delayed 40 mg PO QAM #30 tabs 08/03/24 09/30/24 Rx release Allergies Allergy/AdvReac Type Severity Reaction Status Date / Time No Known Allergies Allergy Verified 09/30/24 12:56 Vital Signs Vital Signs - 24 hr 09/30/24 12:50 Temperature 97.9 F Pulse Rate 75 Respiratory Rate 18 Blood Pressure 141/92 H Pulse Oximetry 99 Oxygen Delivery Room Air Exam Const: General: comfortable and no acute distress HENMT: Face/Nose/Sinus: Normal nares present Eyes: General: appearance normal, both eyes and all related structures Neck: Neck: no JVD Resp: Auscultation: clear to auscultation bilaterally Cardio: Rate: regular rate Rhythm: regular rhythm GI: Inspection: non-distended GI Palp: Yes Soft to palpation Skin: General skin exam: normal color Neuro: General: gait normal Speech: normal speech Extrem: General: normal to inspection Psych: Mental Status: mental status grossly normal Assessment and Plan Assessment and plan (1) Dysphagia: Code(s): R13.10 - Dysphagia, unspecified Status: Acute Assessment and Plan: no more episodes but had food bolus 07/2024 egd to assess if needs dilation
[2024-09-30 13:19] VITALS: BP 122/79; PULSE 80; RESP 18; O2SAT 98
[2024-09-30 13:29] VITALS: BP 119/77; PULSE 65; RESP 20; O2SAT 100
[2024-09-30 13:39] VITALS: BP 120/79; PULSE 65; RESP 18; O2SAT 100
== END 2024-09-30 13:48 | disposition home or self-care (01) ==
PROVIDERS: PCP Internal Medicine Infectious Disease; Visit Provider Internal Medicine Gastroenterology
PROC: 0DJ08ZZ Inspection of Upper Intestinal Tract, Via Natural or Artificial Opening Endoscopic (ICD-10-PCS; CPT 43249; principal; 2024-09-30 15:00)
DX: K22.2 Esophageal obstruction (principal); E66.9 Obesity, unspecified; Z68.29 Body mass index [BMI] 29.0-29.9, adult
CPT/HCPCS: 43249; C1726; J2704; J7120